=== PATIENT | female | born 1990 | race Hispanic/Latino ===

== ENCOUNTER 2017-09-30 11:47 | Emergency (ER) | payer SELFPAY ==
[2017-09-30] MEDS ORDERED: Dexamethasone 4 mg/ml Vial ONE (13:28)
== END 2017-09-30 14:09 | disposition home or self-care (01) ==
LOC: ERS 11:47
DX: J02.0 Streptococcal pharyngitis (principal); E78.5 Hyperlipidemia, unspecified; F32.9 Major depressive disorder, single episode, unspecified
CPT/HCPCS: 87430; 87804; 99283; J1100

== ENCOUNTER 2017-10-08 14:57 | Emergency (ER) | payer SELFPAY ==
[2017-10-08 15:33] LABS: Bilirubin Negative (Negative); Blood, Urine Negative (Negative); Clarity CLOUDY (Clear); Glucose, Urine (Dipstick) Negative (Negative); Leukocyte Moderate (Negative); Nitrite Negative (Negative); Protein, Urine (Dipstick) Negative (Neg-Trace); Specific Gravity, Urine 1.023 (1.002-1.036); pH, Urine 6.5 (5.0-9.0)
[2017-10-08 15:34] LABS: Pregnancy Test - Urine (BHCG) Negative (Negative); Pregu Control Background? CLEAR/WHITE (CLR/WHITE); Pregu Control Bar Appear? YES (CONTROL BAR); Specific Gravity 1.023 (1.002-1.036)
[2017-10-08 15:42] LABS: RBC/HPF None Seen HPF (0-3); WBC/HPF 21-50 HPF (0-3)
[2017-10-08 15:43] LABS: Bacteria/HPF None Seen HPF (None Seen); Hyaline Casts/LPF NONE SEEN LPF (0-3 Hyaline)
== END 2017-10-08 16:48 | disposition home or self-care (01) ==
LOC: ERS 14:57
DX: N39.0 Urinary tract infection, site not specified (principal); E78.1 Pure hyperglyceridemia; F32.9 Major depressive disorder, single episode, unspecified
CPT/HCPCS: 81003; 81015; 81025; 87086; 99283

== ENCOUNTER 2017-12-05 15:55 | Emergency (ER) | payer SELFPAY ==
[2017-12-05 16:30] LABS: #Eosinphils 0.4 thou/uL (0.0-0.7); #Lymphocytes 3.3 thou/uL (1.20-3.40); #Monocytes 0.6 thou/uL (0.11-0.59); #Neutrophils 5.4 thou/uL (1.40-6.50); %Basophils 0.2 % (0.0-1.0); %Eosinophils 4.5 % (0.0-10.0); %Lymphocytes 33.7 % (21.0-51.0); %Neutrophils 55.7 % (42.0-75.0); Hemoglobin 14.2 g/dL (12.0-16.0); Mean Corpuscular HGB CONC 34.5 g/dL (32.0-36.0); Mean Corpuscular Hemoglobin 29.5 pg (27.0-31.0); Mean Corpuscular Volume 85.7 fl (81.0-99.0); Mean Platelet Volume 9.7 fL (7.4-10.4); Platelet Count 221 thou/uL (130-400); RBC Distribution Width 11.3 % (11.5-14.5); White Blood Cell (WBC) Count 9.7 thou/uL (4.8-10.8)
[2017-12-05 16:46] LABS: Anion Gap 7 mmol/L (10-20); BUN (Urea Nitrogen) 10 mg/dL (7.0-18.7); Calc. Creatinine Clearance 0 mL/min (70-130); Carbon Dioxide 31 mmol/L (22-29); Chloride 103 mmol/L (98-107); Estimated GFR-MDRD 85; Glucose 95 mg/dL (70-105); Potassium 3.7 mmol/L (3.5-5.1); Sodium 137 mmol/L (136-145)
[2017-12-05 17:23] LABS: Pregnancy Test - Urine (BHCG) Negative (Negative); Pregu Control Background? CLEAR/WHITE (CLR/WHITE); Pregu Control Bar Appear? YES (CONTROL BAR); Specific Gravity 1.017 (1.002-1.036)
[2017-12-05] MEDS ORDERED: diphenhydrAMINE 50 MG/ML VIAL ONE (18:16)
[2017-12-05] MEDS ORDERED: Metoclopramide HCl 10 MG/2 ML VIAL ONE (18:16)
[2017-12-05] MEDS ORDERED: diphenhydrAMINE 25 MG CAP ONE (18:28)
--- NOTE | 2017-12-05 18:47 | CT ---
CT HEAD WITHOUT CONTRAST: INDICATIONS: Headache. TECHNIQUE: Multiple axial tomograms obtained through the head without IV enhancement. FINDINGS: The ventricles have normal size and position. No evidence of intracranial hemorrhage or mass. No ev idence of infarct. The sinuses and mastoids are well aerated. IMPRESSION: No acute abnormalities. POS: [facility]
== END 2017-12-05 19:15 | disposition home or self-care (01) ==
LOC: ERS 15:55
DX: R51 Headache (principal); E78.1 Pure hyperglyceridemia; F32.9 Major depressive disorder, single episode, unspecified
CPT/HCPCS: 36415; 70450; 80048; 81025; 83690; 85025; 93005; 96361; 96374; J1200; J2765

== ENCOUNTER 2017-12-11 18:58 | Emergency (ER) | payer SELFPAY ==
[2017-12-11] MEDS ORDERED: diphenhydrAMINE 50 MG/ML VIAL ONE (19:35)
[2017-12-11] MEDS ORDERED: Metoclopramide HCl 10 MG/2 ML VIAL ONE (19:35)
[2017-12-11] MEDS ORDERED: Ketorolac Tromethamine 30 MG/ML VIAL ONE (19:35)
[2017-12-11] MEDS ORDERED: Sodium Chloride 0.9% 100 ML ONE (19:37)
[2017-12-11 19:43] LABS: #Eosinphils 0.7 thou/uL (0.0-0.7); #Monocytes 0.6 thou/uL (0.11-0.59); %Basophils 0.4 % (0.0-1.0); %Eosinophils 7.4 % (0.0-10.0); %Lymphocytes 43.1 % (21.0-51.0); %Monocytes 6.5 % (0.0-10.0); %Neutrophils 42.6 % (42.0-75.0); Hemoglobin 13.9 g/dL (12.0-16.0); Mean Corpuscular HGB CONC 34.6 g/dL (32.0-36.0); Mean Corpuscular Hemoglobin 29.9 pg (27.0-31.0); Mean Corpuscular Volume 86.5 fl (81.0-99.0); Mean Platelet Volume 9.7 fL (7.4-10.4); Platelet Count 200 thou/uL (130-400); RBC Distribution Width 11.5 % (11.5-14.5); Red Blood Cell (RBC) Count 4.64 mill/uL (4.20-5.40); White Blood Cell (WBC) Count 9.3 thou/uL (4.8-10.8)
[2017-12-11 20:09] LABS: ALT (SGPT) 38 U/L (8-55); AST (SGOT) 23 U/L (5-34); Albumin 4.4 g/dL (3.5-5.0); Alkaline Phosphatase 70 U/L (40-150); Anion Gap 12 mmol/L (10-20); BUN (Urea Nitrogen) 11 mg/dL (7.0-18.7); Bilirubin, Total 0.4 mg/dL (0.2-1.2); CKMB 0.9 ng/mL (0-6.6); Calc. Creatinine Clearance 0 mL/min (70-130); Calcium 9.7 mg/dL (7.8-10.44); Carbon Dioxide 26 mmol/L (22-29); Chloride 104 mmol/L (98-107); Estimated GFR-MDRD Greater than 90; Globulin 3.7 g/dL (2.4-3.5); Glucose 96 mg/dL (70-105); Potassium 4.1 mmol/L (3.5-5.1); Protein, Total 8.1 g/dL (6.0-8.3); Sodium 138 mmol/L (136-145); Troponin I Less than 0.010 ng/mL (< 0.028)
--- NOTE | 2017-12-11 20:13 | CT ---
CT HEAD WITHOUT CONTRAST: 12/11/2017 HISTORY: Syncope. Headache. Dizziness. COMPARISON: 12/05/2017 TECHNIQUE: Serial axial CT imaging obtained at 5 mm intervals, from the vertex through the skull base, without c ontrast. FINDINGS: The imaged paranasal sinuses and mastoid air cells are well aerated. There is no displaced calvarial fracture. No intracranial hemorrhage, midline shift, mass effect, or ventricular enlargement. IMPRESSION: No acute findings. POS: [facility]
[2017-12-11] MEDS ORDERED: Meclizine HCl 25 MG TAB ONE (20:48)
== END 2017-12-11 20:54 | disposition home or self-care (01) ==
LOC: ERS 18:58
DX: R51 Headache (principal); R55 Syncope and collapse; E78.2 Mixed hyperlipidemia; F32.9 Major depressive disorder, single episode, unspecified; Z79.899 Other long term (current) drug therapy
CPT/HCPCS: 36415; 70450; 80053; 82553; 84146; 84484; 85025; 85379; 93005; 96365; 96375; J1200; J1885; J2765; J7050